=== PATIENT | male | born 1980 | race American Indian/Alaskan Native ===

== ENCOUNTER 2017-02-04 22:25 | Emergency (ER) | payer BC | END 2017-02-04 22:30 | disposition left against medical advice (07) | LOC: ED 22:25 | DX: Z53.21 Procedure and treatment not carried out due to patient leaving prior to being seen by health care provider (principal) ==

== ENCOUNTER 2017-02-05 09:27 | Emergency (ER) | payer BC, OTHER ==
[2017-02-05 09:36] VITALS: BP 114/72
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
== END 2017-02-05 11:03 | disposition home or self-care (01) ==
LOC: ED 09:27
DX: S16.1XXA Strain of muscle, fascia and tendon at neck level, initial encounter (principal); S39.012A Strain of muscle, fascia and tendon of lower back, initial encounter; F17.200 Nicotine dependence, unspecified, uncomplicated; V89.2XXA Person injured in unspecified motor-vehicle accident, traffic, initial encounter; Y93.89 Activity, other specified; Y99.8 Other external cause status; Y92.89 Other specified places as the place of occurrence of the external cause
CPT/HCPCS: 72040; 72100; 99283